=== PATIENT | female | born 1945 | race Caucasian/White ===

== ENCOUNTER → 2024-01-18 10:11 | Outpatient (CLI) | payer MEDICARE, OTHER, SELFPAY ==
--- NOTE | 2024-01-18 10:20 | DI.CT.S_ITS ---
PROCEDURE: CT UE RT WO CON INDICATIONS: RIGHT SHOULDER PAIN TECHNIQUE: Noncontrast 0.75 mm thick sections acquired from the acromioclavicular joint to the inferior scapula, with oblique coronal and oblique sagittal reformatting. For radiation dose reduction, the following was used: automated exposure control, adjustment of mA and/or kV according to patient size. COMPARISON: [facility] Outside Film, CR, XR SHOULDER 2+ VIEWS RIGHT, 12/22/2023, 11:05. FINDINGS: Image quality: Excellent. Bones: No acute osseous fracture or dislocation. Severe degenerative changes are seen at the glenohumeral joint with full-thickness joint space narrowing, subchondral sclerosis, subchondral cystic changes, marginal osteophyte formation, and remodeling of the articular surfaces. There is no significant glenoid retroversion or anteversion relative to the midplane of the scapula at the mid glenoid level. Mild acromioclavicular osteoarthrosis. Degenerative changes are seen in the included spine. Included ribs are intact. Soft tissues: Moderate glenohumeral effusion. Multiple ossified loose bodies are present, the largest of which measures up to 2.5 cm in the axillary recess. There is mild atrophy and grade 2 fatty infiltration of the supraspinatus muscle and superior portion of the subscapularis muscle. However, the tendons, ligaments, articular cartilages, and labrum are not well evaluated with CT. Included portions of the lung are clear. IMPRESSION: 1. Severe glenohumeral osteoarthrosis with remodeling of the articular surfaces but no significant glenoid retroversion or anteversion. 2. Moderate glenohumeral effusion with multiple ossified intra-articular loose bodies measuring up to 2.5 cm. 3. Mild acromioclavicular joint osteoarthrosis. Approved by: Kai Celis M.D. on 01/18/2024 at 15:51
[2024-01-18 11:32] LABS: Add Manual Diff / Slide Review NO; Basophils Absolute Auto 0 /uL (0-100); Basophils Percent Auto 0.6 % (0-2); Eosinophils Absolute Auto 400 /uL (0-450); Eosinophils Percent Auto 6.1 % (2-4); Hematocrit 36.1 % (36-46); Hemoglobin 12.3 g/dL (12.0-16.0); Lymphocytes Absolute Auto 1100 /uL (1100-4500); Mean Corpuscular HGB Conc 34.2 % (30-36); Mean Corpuscular Volume 99.5 fL (80-100); Monocytes Absolute Auto 400 /uL (0-900); Monocytes Percent Auto 6.7 % (3-14); Neutrophils Absolute Auto 3900 /uL (1500-7000); Neutrophils Percent Auto 67.6 % (50-75); Platelet Count 248 X10^3/uL (150-400); Red Blood Cell Count 3.63 X10^6/uL (4.0-5.2); Red Cell Distribution Width 12.7 % (11.6-14.8); White Blood Cell Count 5.8 X10^3/uL (4.5-11.0)
[2024-01-18 12:03] LABS: BUN Creatinine Ratio 30.9 (6-22); Blood Urea Nitrogen 25 mg/dL (7-17); Calcium 9.5 mg/dL (8.4-10.2); Carbon Dioxide 29 mmol/L (22-32); Chloride 102 mmol/L (98-107); Estimated Glomerular Filt Rate > 60 mL/min (>60); Glucose 89 mg/dL (80-110); HEMOLYSIS < 15 (0-50); Potassium 4.7 mmol/L (3.4-5.1); Sodium 135 mmol/L (137-145)
[2024-01-18 14:46] LABS: Appearance Urine UA CLEAR; Bilirubin Urine UA 1+ (NEGATIVE); Color Urine UA YELLOW; Glucose Urine UA NEGATIVE (Negative); Ketones Urine UA NEGATIVE (NEGATIVE); Leukocyte Esterase Urine UA TRACE (NEGATIVE); Nitrite Urine UA NEGATIVE (Negative); Occult Blood Urine UA NEGATIVE (Negative); Protein Urine UA NEGATIVE (Negative); Specific Gravity Urine UA 1.025 (1.000-1.035); Urobilinogen Urine UA 0.2 E.U./dL (0.2)
[2024-01-18 14:57] LABS: pH Urine UA 5.5 (4.5-8.0)
[2024-01-18 14:58] LABS: Bacteria Urine Occasional (0-1); Ictotest Urine Positive (Negative); RBC Urine 0-1/HPF (0-5/HPF); Squamous Epithelial Cell Urine 1-5 /HPF (0-5/HPF); Urine Volume 10mL (spun); WBC Urine 1-5/HPF (0-5/HPF)
[2024-01-18 14:59] LABS: Culture Indicated Urine Cult Not Indicated
== END ==
LOC: CT 10:16
PROVIDERS: Referring Provider Orthopaedic Surgery; Visit Provider Orthopaedic Surgery
DX: M19.011 Primary osteoarthritis, right shoulder (principal); Z01.818 Encounter for other preprocedural examination; Z01.812 Encounter for preprocedural laboratory examination; M25.411 Effusion, right shoulder; N39.0 Urinary tract infection, site not specified
CPT/HCPCS: 36415; 73200; 80048; 81001; 85025